=== PATIENT | female | born 2000 | race Caucasian/White ===

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

== ENCOUNTER 2019-02-13 09:42 | Outpatient (REF) | payer OTHER, SELFPAY ==
[2019-02-14 15:02] LABS: Chlamydia Result Negative (Negative); GC Result Negative (Negative)
[2019-02-17 14:13] LABS: Specimen Description Urine
== END 2019-02-13 10:02 ==
LOC: LBN 09:42
PROVIDERS: PCP Pediatrics; Visit Provider Nurse Practitioner Women's Health
DX: Z11.3 Encounter for screening for infections with a predominantly sexual mode of transmission (principal)
CPT/HCPCS: 87491; 87591

== ENCOUNTER 2019-08-01 16:12 | Outpatient (REF) | payer OTHER, SELFPAY ==
[2019-08-03 13:37] LABS: Chlamydia Result Negative (Negative); GC Result Negative (Negative)
== END 2019-08-01 16:32 ==
LOC: LBN 16:12
PROVIDERS: PCP Pediatrics; Visit Provider Nurse Practitioner Women's Health
DX: Z11.3 Encounter for screening for infections with a predominantly sexual mode of transmission (principal)
CPT/HCPCS: 87491; 87591

== ENCOUNTER 2019-10-17 08:20 | Outpatient (CLI) | payer OTHER, SELFPAY ==
[2019-10-22 01:48] LABS: SARS-CoV-2 RNA Undetected (Undetected); SARS-CoV-2 Specimen Source Nasopharynx
== END 2019-10-17 08:40 ==
PROVIDERS: PCP Pediatrics; Visit Provider Pediatrics
DX: Z11.59 Encounter for screening for other viral diseases (principal)
CPT/HCPCS: U0003

== ENCOUNTER 2020-04-11 17:23 | Outpatient (REF) | payer OTHER, SELFPAY ==
--- NOTE | 2020-04-11 16:40 | PAPFT_PTH ---
PATIENT: Jeremi Jerome LOC: [facility] U#:[id number] AGE/SX: 20/F ROOM: RE04/11/[address]: RODOLFO Carbajal : 2000 BED: DIS: 04/11/2020 SPEC #: [id number] RECD: 04/12/20 12:55 STATUS: ROGER REDebora #: [id number] PARAMJIT: 04/11/20 16:[address]: Ashlyn Brizuela DEPT: [facility] Cytology RECD BY: Mandi Sun Tissues: 1 - CX/ENDOCX FOR PAP SMEARS Procedures: PAP THIN PREP/[facility] Screening Comments: [id number] (CHLAMYDIA/GC)
[2020-04-16 14:54] LABS: Chlamydia Result Negative (Negative); GC Result Negative (Negative)
== END 2020-04-11 17:43 ==
LOC: LBN 17:23
PROVIDERS: PCP Nurse Practitioner Family; Visit Provider Nurse Practitioner Family
DX: Z12.4 Encounter for screening for malignant neoplasm of cervix (principal); Z11.3 Encounter for screening for infections with a predominantly sexual mode of transmission; R87.610 Atypical squamous cells of undetermined significance on cytologic smear of cervix (ASC-US)
CPT/HCPCS: 87491; 87591; 88142

== ENCOUNTER 2022-05-01 12:18 | Outpatient (REF) | payer BC, SELFPAY | END 2022-05-01 12:19 | disposition home or self-care (01) | LOC: LBN 12:18 | PROVIDERS: PCP Nurse Practitioner Family; Visit Provider Nurse Practitioner Family | DX: N39.0 Urinary tract infection, site not specified (principal) | CPT/HCPCS: 87077; 87086; 87186 ==

== ENCOUNTER 2022-07-02 16:56 | Outpatient (REF) | payer BC, SELFPAY ==
--- NOTE | 2022-07-02 14:15 | PAPFT_PTH ---
PATIENT: Jeremi Jerome LOC: [facility] U#:[id number] AGE/SX: 22/F ROOM: RE07/02/[address]: RODOLFO Carbajal : 2000 BED: DIS: 07/02/2022 SPEC #: [id number] RECD: 07/05/22 07:48 STATUS: ROGER REQ #: [id number] PARAMJIT: 07/02/22 14:[address]: Ashlyn Brizuela DEPT: [facility] Cytology RECD BY: Roma Reese Tissues: 1 - CX/ENDOCX FOR PAP SMEARS Procedures: PAP THIN PREP/[facility] Screening Comments: [id number] (CHLAMYDIA/GC)
[2022-07-06 13:53] LABS: Chlamydia Result Negative (Negative); GC Result Negative (Negative)
== END 2022-07-02 16:57 | disposition home or self-care (01) ==
LOC: LBN 16:56
PROVIDERS: PCP Nurse Practitioner Family; Visit Provider Nurse Practitioner Family
DX: Z11.3 Encounter for screening for infections with a predominantly sexual mode of transmission (principal); Z12.4 Encounter for screening for malignant neoplasm of cervix
CPT/HCPCS: 87491; 87591; 88142

== ENCOUNTER 2024-03-27 16:27 | Outpatient (REF) | payer BC, SELFPAY ==
--- NOTE | 2024-03-27 15:00 | PAPFT_PTH ---
PATIENT: Jeremi Jerome LOC: [facility] U#:[id number] AGE/SX: 24/F ROOM: RE03/27/[address]: RODOLFO Carbajal : 2000 BED: DIS: 03/27/2024 SPEC #: [id number] RECD: 03/28/24 12:54 STATUS: ROGER REQ #: [id number] PARAMJIT: 03/27/24 15:[address]: Ashlyn Brizuela DEPT: [facility] Cytology RECD BY: Mandi Sun Tissues: 1 - CX/ENDOCX FOR PAP SMEARS Procedures: PAP THIN PREP/[facility] Screening Comments: [id number]
== END 2024-03-27 16:28 | disposition home or self-care (01) ==
LOC: LBN 16:27
PROVIDERS: PCP Nurse Practitioner Family; Visit Provider Nurse Practitioner Family
DX: Z00.00 Encounter for general adult medical examination without abnormal findings (principal); F41.1 Generalized anxiety disorder; F32.9 Major depressive disorder, single episode, unspecified; R42 Dizziness and giddiness
CPT/HCPCS: 88142

== ENCOUNTER 2024-04-04 02:18 | Outpatient (CLI) | payer BC, SELFPAY ==
[2024-04-04 15:46] LABS: Abs Immature Grans 0.02 10^3/uL (0.0-0.06); Absolute Basophil Count 0.05 10^3/uL (0.0-0.2); Absolute Eosinophil Count 0.24 10^3/uL (0.0-0.7); Absolute Lymphocyte Count 2.34 10^3/uL (1.2-3.4); Absolute Monocyte Count 0.44 10^3/uL (0.1-0.8); Absolute Neutrophil Count 4.26 10^3/uL (1.2-6.7); Basophils % 0.7 %; Eosinophils % 3.3 %; HCT 38.2 % (36.0-46.0); HGB 12.8 g/dL (11.2-15.7); Immature Grans % 0.3 %; Lymphocytes % 31.8 %; MCH 30.4 pg (27.0-33.0); MCHC 33.5 % (32.0-36.0); MCV 91 fL (80-95); MPV 10.6 fL (8.0-11.0); Neutrophils % 57.9 %; Platelet Count 215 10^3/uL (130-400); RBC 4.21 10^6/uL (3.93-5.22); RDW 11.9 % (11.7-14.6); RDW-SD 39.5 fL; WBC 7.35 10^3/uL (4.4-10.8)
[2024-04-04 16:02] LABS: Hemoglobin A1C 5.2 % (<5.7)
[2024-04-04 16:22] LABS: Anion Gap 6.9 mmol/L (3-11); BUN 12 mg/dL (7-18); CO2 29.1 mmol/L (21.0-32.0); CREATININE 0.8 mg/dL (0.55-1.02); Calcium 9.5 mg/dL (8.5-10.1); Calculated LDL 121 mg/dL (<100); Chloride 104 mmol/L (98-107); Cholesterol 198 mg/dL (<200); Glucose 83 mg/dL (74-106); HDL Cholesterol 67 mg/dL (40-60); Potassium 3.6 mmol/L (3.5-5.1); Sodium 140 mmol/L (136-145); TSH (W/Ref FT4) 1.58 uIU/mL (0.36-3.74); Triglyceride 53 mg/dL (<150)
== END 2024-04-04 02:19 | disposition home or self-care (01) ==
LOC: LBO 02:19
PROVIDERS: PCP Nurse Practitioner Family; Visit Provider Nurse Practitioner Family
DX: Z00.00 Encounter for general adult medical examination without abnormal findings (principal)
CPT/HCPCS: 36415; 80048; 80061; 83036; 84443; 85025